=== PATIENT | female | born 1950 | race Caucasian/White ===

== ENCOUNTER 2018-06-14 11:56 | Emergency (ER) | payer OTHER ==
--- NOTE | 2018-06-14 12:08 | EDPHY ---
H & P Time Seen by Provider: 06/14/18 12:08 HPI/ROS: CHIEF COMPLAINT: Could not see on the left side HISTORY OF PRESENT ILLNESS: Patient was working and suddenly could not see the left side of her clients face at 10:00 a.m.. 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 This was true whether she covered her right eye or left eye. She said she felt a little bit confused but denies having vertigo or weakness or numbness in extremities or difficulty with speech. She has a little facial tingling currently. She also did have a headache which was kind of like her migraine but it did not last very long. She does not have a headache now. The symptoms all went away after 1 hr. Were not better worse with anything. REVIEW OF SYSTEMS: Eye: HPI ENT: no sore throat Cardiac: no chest pain or syncope Pulmonary: no cough or SOB Abdomen: no vomiting, diarrhea, abdominal pain Musculoskeletal: No neck pain. Skin: no rash Neuro: HPI Constitutional: no fever : no urinary symptoms A comprehensive 10 point review of systems is otherwise negative aside from elements mentioned in the history of present illness. PAST MEDICAL HISTORY: In includes hypothyroid, migraines, depression Social history: Primary care doctor Lu at [facility] General Appearance: Alert and conversant, cooperative. Eyes: No scleral icterus. Pupils equal reactive extraocular motion intact. Visual schmidt are intact to confrontation. ENT, Mouth: Normal mucous membranes. Respiratory: Normal respiratory effort, breath sounds equal, lungs are clear to auscultation. Cardiovascular: Regular rate and rhythm. Gastrointestinal: Abdomen is soft and non tender. Neurological: Alert, face symmetric, normal motor and sensory in extremities. Speech is fluent and [id number] normal bilaterally. No pronator drift. Skin: Warm and dry, no rashes. Musculoskeletal: No peripheral edema. Psychiatric: Not agitated. Emergency Department course/MDM: Patient presents with 1 hr of left-sided visual field cut consistent with TIA. Her symptoms are completely resolved at this time so she is not made a stroke alert. EKG, labs to include Chem 8 and troponin, CT and CT angiography. 1335: Negative CT angiography per Dr. Friedman. 1342: [facility] Dr. Osman; [facility] requests transfer to [facility]. 1355: Case discussed with the [facility] physician Dr. Osman at 1355. The accepting physician is Dr. Gtz. Risks, benefits, and alternatives discussed with the patient and consented. The patient will be transferred to [facility] via ALS because she is a [facility] patient, in stable condition. This is a patient requested transfer. Smoking Status: Never smoked Constitutional: Initial Vital Signs Temperature (C) 36.8 C 06/14/18 11:56 Heart Rate 70 06/14/18 11:56 Respiratory Rate 19 06/14/18 11:56 Blood Pressure 162/96 H 06/14/18 11:56 O2 Sat (%) 96 06/14/18 11:56 O2 Delivery Mode Room Air Allergies/Adverse Reactions: No Known Allergies Allergy (Verified 06/14/18 13:36) Home Medications: Medication Instructions Recorded Citalopram [CeleXA] 20 mg PO DAILY 06/18/13 Levothyroxine [Synthroid 75 mcg 75 mcg PO DAILY06 06/18/13 (*)] Herbals/Supplements -Info Only 1 ea PO DAILY 06/14/18 Ibuprofen [Motrin (*)] 200 mg PO DAILY PRN 06/14/18 Magnesium Oxide [Magnesium Oxide 400 mg PO DAILY 06/14/18 400 mg (*)] [place]-3 Fatty Acids [Fish Oil 1000 1,000 mg PO DAILY 06/14/18 mg (*)] Medical Decision Making - Diagnostics Imaging Results: Imaging Impressions Head CT 06/14/18 12:29 Impression: Negative. No acute intracranial hemorrhage or evidence of ischemia. Findings discussed with Emergency Department physician, ORIN MARIN at 2018 13:26. Head CTA 06/14/18 12:29 Impression: 1. Normal CT angiogram of the neck. 2. Normal CT angiogram of the [place] with normal variation as detailed above, as detailed above. Note: All calculations were performed using NASCET criteria. Findings discussed with Orin Marin M.D. at 13:34 hour, 06/14/2018. Neck CTA 06/14/18 12:29 Impression: 1. Normal CT angiogram of the neck. 2. Normal CT angiogram of the [place] with normal variation as detailed above, as detailed above. Note: All calculations were performed using NASCET criteria. Findings discussed with Orin Marin M.D. at 13:34 hour, 06/14/2018. Imaging: Discussed imaging studies w/ scallop dredger Radiologist Differential Diagnosis: Differential considered including but not limited to TIA, ophthalmic migraine, primary eye problem, partial seizure - Data Points Laboratory Results: Laboratory Results 06/14/18 11:58 06/14/18 11:58 06/14/18 06/14/18 06/14/18 12:27 12:15 11:58 WBC RBC Hgb POC Hgb 14.6 gm/dL gm/dL (12.6-16.3) Hct POC Hct 43 % % (38-47) MCV MCH MCHC RDW Plt Count MPV Neut % (Auto) Lymph % (Auto) [place] % (Auto) Eos % (Auto) Baso % (Auto) Nucleat RBC Rel Count Absolute Neuts (auto) Absolute Lymphs (auto) Absolute Monos (auto) Absolute Eos (auto) Absolute Basos (auto) Absolute Nucleated RBC Immature Gran % Immature Gran # PT INR POC Sodium 141 mEq/L mEq/L (135-145) Sodium 138 mEq/L mEq/L (135-145) POC Potassium 4.0 mEq/L mEq/L (3.3-5.0) Potassium 4.4 mEq/L mEq/L (3.5-5.2) POC Chloride 101 mEq/L mEq/L (97-110) Chloride 105 mEq/L mEq/L (97-110) Carbon Dioxide 26 mEq/l mEq/l (22-31) POC Total CO2 28 mEq/L mEq/L (22-31) Anion Gap 7 mEq/L mEq/L (6-14) POC BUN 16 mg/dL mg/dL (7-23) BUN 17 mg/dL mg/dL (7-23) Creatinine 0.8 mg/dL mg/dL (0.6-1.0) POC Creatinine 0.8 mg/dL mg/dL (0.6-1.0) Estimated GFR > 60 Glucose 87 mg/dL mg/dL (70-100) POC Glucose 82 mg/dL mg/dL (70-100) Calcium 9.2 mg/dL mg/dL (8.5-10.4) POC Troponin I 0.00 ng/mL ng/mL (0.00-0.08) 06/14/18 06/14/18 11:58 11:58 WBC 5.19 10^3/uL 10^3/uL (3.80-9.50) RBC 4.78 10^6/uL 10^6/uL (4.18-5.33) Hgb 14.7 g/dL g/dL (12.6-16.3) POC Hgb Hct 44.9 % % (38.0-47.0) POC Hct MCV 93.9 fL fL (81.5-99.8) MCH 30.8 pg pg (27.9-34.1) MCHC 32.7 g/dL g/dL (32.4-36.7) RDW 12.4 % % (11.5-15.2) Plt Count 245 10^3/uL 10^3/uL (150-400) MPV 10.7 fL fL (8.7-11.7) Neut % (Auto) 49.1 % % (39.3-74.2) Lymph % (Auto) 38.5 % % (15.0-45.0) [place] % (Auto) 7.7 % % (4.5-13.0) Eos % (Auto) 3.5 % % (0.6-7.6) Baso % (Auto) 1.0 % % (0.3-1.7) Nucleat RBC Rel Count 0.0 % % (0.0-0.2) Absolute Neuts (auto) 2.55 10^3/uL 10^3/uL (1.70-6.50) Absolute Lymphs (auto) 2.00 10^3/uL 10^3/uL (1.00-3.00) Absolute Monos (auto) 0.40 10^3/uL 10^3/uL (0.30-0.80) Absolute Eos (auto) 0.18 10^3/uL 10^3/uL (0.03-0.40) Absolute Basos (auto) 0.05 10^3/uL 10^3/uL (0.02-0.10) Absolute Nucleated RBC 0.00 10^3/uL 10^3/uL (0-0.01) Immature Gran % 0.2 % % (0.0-1.1) Immature Gran # 0.01 10^3/uL 10^3/uL (0.00-0.10) PT 12.8 SEC SEC (12.0-15.0) INR 0.94 (0.83-1.16) POC Sodium Sodium POC Potassium Potassium POC Chloride Chloride Carbon Dioxide POC Total CO2 Anion Gap POC BUN BUN Creatinine POC Creatinine Estimated GFR Glucose POC Glucose Calcium POC Troponin I Point of Care Test Results: Chemistry 06/14/18 06/14/18 12:27 12:15 POC Sodium 141 mEq/L mEq/L (135-145) POC Potassium 4.0 mEq/L mEq/L (3.3-5.0) POC Chloride 101 mEq/L mEq/L (97-110) POC Total CO2 28 mEq/L mEq/L (22-31) POC BUN 16 mg/dL mg/dL (7-23) POC Creatinine 0.8 mg/dL mg/dL (0.6-1.0) POC Glucose 82 mg/dL mg/dL (70-100) POC Troponin I 0.00 ng/mL ng/mL (0.00-0.08) ISTAT H&H 06/14/18 12:27 POC Hgb 14.6 gm/dL gm/dL (12.6-16.3) POC Hct 43 % % (38-47) Departure - Departure Disposition: Acute Care Hospital [facility] Clinical Impression: Transient cerebral ischemia Qualifiers: Transient cerebral ischemia type: unspecified Qualified Code(s): G45.9 - Transient cerebral ischemic attack, unspecified Condition: Good Referrals: Patient,NotPresent [Unknown] - As per Instructions
[2018-06-14] MEDS ORDERED: IOPAMIDOL (ISOVUE 370) 100 ML BTL IV ONE (12:37)
[2018-06-14 12:39] LABS: PLATELET COUNT 245 10^3/uL (150-400)
[2018-06-14 12:51] LABS: INR 0.94 (0.83-1.16); PROTIME(PATIENT) 12.8 SEC (12.0-15.0)
--- NOTE | 2018-06-14 13:00 | CPEKG ---
Test Reason : OPEN Blood Pressure : / mmHG Vent. Rate : 057 BPM Atrial Rate : 057 BPM P-R Int : 164 ms QRS Dur : 094 ms QT Int : 433 ms P-R-T Axes : 043 030 005 degrees QTc Int : 422 ms Sinus rhythm Low voltage, precordial leads Borderline T abnormalities, anterior leads Confirmed by Orin Marin ([id number]) on 06/14/2018 1:00:13 PM Referred By: ORIN MARIN Confirmed By:Orin Marin
[2018-06-14 15:20] VITALS: BP 142/88
== END 2018-06-14 15:21 | disposition short-term general hospital (02) ==
LOC: EDUNIT#
DX: G45.9 Transient cerebral ischemic attack, unspecified (principal); R29.700 NIHSS score 0; G43.909 Migraine, unspecified, not intractable, without status migrainosus; E03.9 Hypothyroidism, unspecified; F32.9 Major depressive disorder, single episode, unspecified
CPT/HCPCS: 70450; 70496; 70498; 93005; 99285; Q9967; 82435-PO; 82565-PO; 82947-PO; 84132-PO; 84295-PO; 84484-ER; 84520-PO; 85014-ER